=== PATIENT | female | born 1965 | race Caucasian/White ===

== ENCOUNTER 2017-06-28 00:56 | Emergency (ER) | payer OTHER ==
[~2017-06-28] VITALS: Ht 165.1 cm; Wt 57.5 kg
[~2017-06-28 00:56] MED LIST: CHEWABLE-VITE1 EACH PO; CITALOPRAM HBR20 MG PO; ZOFRAN ODT4 MG PO
[2017-06-28 01:25] LABS: HEMATOCRIT 42.5 % (36.0-46.0); MCH 32.6 PG (29.0-34.0); MCHC 34.6 G/DL (30.0-36.0); MCV 94.2 FL (83-99); MEAN PLAT.VOLUME 9.8 uM^3 (9.5-12.4); PLATELET COUNT 273 K/uL (156-360); RBC DIS.WIDTH-CV 12.8 % (11.8-14.6); RBC DIS.WIDTH-SD 44.1 % (39-53); RED BLOOD COUNT 4.51 M/uL (3.80-5.20); WHITE BLOOD COUNT 14.5 K/uL (4.1-10.2)
[2017-06-28 01:33] LABS: CHLORIDE 103 mEq/L (99-109); POTASSIUM 3.8 mEq/L (3.7-5.4); SODIUM 137 mEq/L (136-147)
[2017-06-28 01:36] LABS: GLUCOSE 111 mg/dL (70-99)
[2017-06-28 01:37] LABS: ANION GAP 10 MEQ/L (2-14)
[2017-06-28 01:38] LABS: TOTAL BILIRUBIN 0.5 mg/dL (0.0-1.0)
[2017-06-28 01:39] LABS: ALKALINE PHOSPHATASE 69 IU/L (3-129); GFR ESTIMATE (CALCULATED) > 59 mL/min/
[2017-06-28 01:40] LABS: UREA NITROGEN (BUN) 18 mg/dL (9-23)
[2017-06-28 01:48] LABS: QUANTITATIVE HCG < 4.0 MIU/ML
[2017-06-28] MEDS ORDERED: ZOFRAN ODT4 MG PO (02:42)
[2017-06-28 02:53] VITALS: BP 117/72
== END 2017-06-28 02:54 | disposition home or self-care (01) ==
LOC: EME 00:56 → EXP 00:56
DX: R11.2 Nausea with vomiting, unspecified (principal); R19.7 Diarrhea, unspecified
CPT/HCPCS: 80053; 81003; 84702; 85027; 99281; 99285; J1200; J2270; J2765; J7030; S0028